=== PATIENT | male | born 1970 | race Caucasian/White ===

== ENCOUNTER 2018-02-15 05:58 | Emergency (ER) | payer BC ==
[~2018-02-15] VITALS: Ht 177.8 cm; Wt 86.2 kg
--- NOTE | 2018-02-15 06:08 | NUR ---
ED Nurse Note: Pt walked into ER stating that he has chest pain that started at 4AM that radiate to L arm and jaw. pt appears asymptomatic. pt states the pain is consistent, during rest and during ADLs. additionally, the pt denies nausea and vomiting. pt states that he has felt these symptomes 2 weeks ago. pulse and sensations felt on all extremites. HR is 60 during initial note, synus rhythm, BP is 141/ 101
[2018-02-15 06:16] VITALS: BP 132/87
--- NOTE | 2018-02-15 06:26 | Emergency Room Report ---
History of Present Illness General Chief Complaint: Chest Pain Source: Patient (Tunde Hays MD) Present Illness HPI Is a 47-year-old male with a history of hyperlipidemia who presents with chief complaint of chest pain. Onset was about 2 hours prior to arrival. Pain woke up from sleep. He said around 3 AM he was very hot said he was sweaty. 4 AM he developed epigastric substernal chest pain. He couldn't fall back to sleep because of the pain. He was concerned because he's started having some pressure in his right jaw and left arm. No exertional component. No nausea no vomiting. No diaphoresis. No shortness of breath. He had left-sided chest pain 2 weeks ago that felt like an achy muscle. He didn't think anything of it. He did get an EKG and chest x-ray that were normal. Denies any other complaint. Has not take anything for this. Does have an extensive family history of MIs. (Tunde Hays MD) Allergies: Coded Allergies: No Known Allergies (Unverified , 02/15/18) Patient History Past Medical History: see triage record, old chart reviewed Past Surgical History: none Pertinent Family History: [place], other - CAD Social History: Denies: smoking Immunizations: other Reviewed Nursing Documentation: PMH: Agreed; PSxH: Agreed (Tunde Hays MD) Review of Systems Eye: Denies: eye pain, blurred vision ENT: Denies: ear pain, nose congestion, throat swelling Respiratory: Denies: cough, shortness of breath Cardiovascular: Reports: chest pain; Denies: palpitations Gastrointestinal: Denies: abdominal pain, diarrhea, nausea, vomiting Musculoskeletal: Denies: back pain, joint pain Skin: Denies: rash Neurological: Denies: headache, numbness Endocrine: Denies: increased thirst, increased urine Hematologic/Lymphatic: Denies: easy bruising All Other Systems: negative except mentioned in HPI (Tunde Hays MD) Physical Exam Vital Signs Date Time Temp Pulse Resp B/P (MAP) Pulse Ox O2 Delivery O2 Flow Rate FiO2 02/15/18 06:08 97.9 56 18 132/87 99 Room Air 02/15/18 06:16 99 vitals normal Sp02 EP Interpretation: reviewed, normal General Appearance: well appearing, no apparent distress, alert Head: normocephalic, atraumatic Eyes: bilateral eye PERRL, bilateral eye EOMI ENT: hearing grossly normal, normal pharynx Neck: full range of motion, supple, no meningismus Respiratory: chest non-tender, lungs clear, normal breath sounds Cardiovascular #1: regular rate, rhythm, no murmur Gastrointestinal: normal bowel sounds, non tender, no mass, no organomegaly, no bruit, non-distended Musculoskeletal: back normal, gait/station normal, normal range of motion Psychiatric: mood/affect normal Skin: warm/dry (Tunde Hays MD) Procedures Critical Care Time Critical Care Time i. I feel this is a highly complex case requiring extensive working including EKG/Rhythm strip, Xray/CT/US, Blood/urine lab work, repeat exams while in ED, and administration of strong opiates/narcotics for pain control, admission to hospital or close patient follow up. Total time: 45 min bedside evaluation and treatment excludes procedures (EKG). Reason for critical care: STEMI Possible complications: hypotension, hypertension, [place], shock, arrhythmias, metabolic acidosis, end organ damage, respiratory failure. Interventions: labs, EKG, CXR, aspirin, Nitro, interpretation of EKG and labs, discussion with STEMI team at [facility], heparin drip/bolus Course: Patient presenting with chest pain. Started this morning. History of high cholesterol. Given aspirin and nitroglycerin here with chest pain improved. EKG shows concerns for ST elevations in lateral leads, with reciproal changes. Troponin greater than 7. Coags ordered. Discussed with PMD Dr James at [facility]. Heparin drip and bolus started. Discussed case with STEMI team at [facility] and they accepted patient Consultations: nursing staff, EMS, family Performed by: Dr Kingsley Tolerated well condition = critical j. because of unstable vital signs this patient had a condition that could potentially threaten life or limb. I feel this is a critical patient who required my full attention while patient was considered critical. Total Critical Care Time excluding procedures was greater than 35 minutes (Pranay Kingsley MD) Medical Decision Making Diagnostic Impression: Primary Impression: Chest pain Qualified Codes: R07.9 - Chest pain, unspecified Additional Impression: STEMI (ST elevation myocardial infarction) Qualified Codes: I21.3 - ST elevation (STEMI) myocardial infarction of unspecified site ER Course Patient with chest pain with some concerning symptoms. Initial EKG w/o evidence of STEMI. He does have repolarization and diffuse ST elevation on EKG. Labs, chest x-ray done. Symptoms concerning for ACS. I will sign this patient out to Dr. Kingsley for for final disposition. (Tunde Hays MD) ER Course Hospital Course 47 yo M presents with chest pain since this morning Patient initially seen and evaluated by Dr Hays; please see his note for full history and physical Clinical course labs reviewed- no leukocytosis, electrolytes ok, trop >7 EKG- ST elevations in lateral leads, reciprocal changes noted on repeat EKG Chest x-ray- no acute process Discussed with patient. He put me in touch with PMD Dr. James at [facility]. agrees the patient will require transfer heparin drip/bolus started. Discussed case with STEMI at [facility]. Agreed that patient is likely having a acute coronary event and will require immediate intervention. 911 called to take patient to [facility] I. I feel this is a highly complex case requiring extensive working including EKG/Rhythm strip, Xray/CT/US, Blood/urine lab work, repeat exams while in ED, and administration of strong opiates/narcotics for pain control, admission to hospital or close patient follow up. Diagnosis - chest pain, STEMI Transferred [facility] in critical condition Labs Test 02/15/18 06:20 White Blood Count 6.0 K/UL (4.8-10.8) Red Blood Count 4.47 M/UL (4.70-6.10) Hemoglobin 14.1 G/DL (14.2-18.0) Hematocrit 40.5 % (42.0-52.0) Mean Corpuscular Volume 91 FL (80-99) Mean Corpuscular Hemoglobin 31.6 PG (27.0-31.0) Mean Corpuscular Hemoglobin Concent 34.8 G/DL (32.0-36.0) Red Cell Distribution Width 10.8 % (11.6-14.8) Platelet Count 193 K/UL (150-450) Mean Platelet Volume 8.6 FL (6.5-10.1) Neutrophils (%) (Auto) 62.7 % (45.0-75.0) Lymphocytes (%) (Auto) 20.8 % (20.0-45.0) Monocytes (%) (Auto) 12.8 % (1.0-10.0) Eosinophils (%) (Auto) 2.8 % (0.0-3.0) Basophils (%) (Auto) 0.9 % (0.0-2.0) Prothrombin Time 10.4 SEC (9.30-11.50) Prothromb Time International Ratio 1.0 (0.9-1.1) Activated Partial Thromboplast Time 30 SEC (23-33) Sodium Level 141 MMOL/L (136-145) Potassium Level 3.7 MMOL/L (3.5-5.1) Chloride Level 104 MMOL/L (98-107) Carbon Dioxide Level 26 MMOL/L (21-32) Anion Gap 12 mmol/L (5-15) Blood Urea Nitrogen 15 mg/dL (7-18) Creatinine 0.9 MG/DL (0.55-1.30) Estimat Glomerular Filtration Rate > 60 mL/min (>60) Glucose Level 112 MG/DL (74-106) Calcium Level 9.2 MG/DL (8.5-10.1) Total Bilirubin 0.8 MG/DL (0.2-1.0) Aspartate Amino Transf (AST/SGOT) 53 U/L (15-37) Alanine Aminotransferase (ALT/SGPT) 68 U/L (12-78) Alkaline Phosphatase 91 U/L (46-116) Total Creatine Kinase 367 U/L (26-308) Creatine Kinase MB 27.3 NG/ML (0.0-3.6) Creatine Kinase MB Relative Index 7.4 Troponin I 7.799 ng/mL (0.000-0.056) Total Protein 7.7 G/DL (6.4-8.2) Albumin 3.9 G/DL (3.4-5.0) Globulin 3.8 g/dL Albumin/Globulin Ratio 1.0 (1.0-2.7) (Pranay Kingsley MD) EKG Diagnostic Results Rate: normal Rhythm: NSR ST Segments: other - Diffuse ST elevation ASA given to the pt in ED: Yes (Tunde Hays MD) Rate: normal Rhythm: NSR ST Segments: other - ST elevations in lateral leads ASA given to the pt in ED: Yes (Pranay Kingsley MD) Rhythm Strip Diag. Results Rhythm Strip Time: 06:26 EP Interpretation: yes Rate: 61 Rhythm: NSR, no PVC's, no ectopy (Tunde Hays MD) EP Interpretation: yes Rhythm: NSR, no PVC's, no ectopy (Pranay Kingsley MD) Chest X-Ray Diagnostic Results Chest X-Ray Diagnostic Results : Chest X-Ray Ordered: Yes # of Views/Limited/Complete: 1 View Indication: Chest Pain EP Interpretation: Yes Interpretation: no consolidation, no effusion, no pneumothorax, no acute cardiopulmonary disease Impression: No acute disease Electronically Signed by: Electronically signed by Pranay Kingsley MD (Pranay Kingsley MD) Last Vital Signs Date Time Temp Pulse Resp B/P (MAP) Pulse Ox O2 Delivery O2 Flow Rate FiO2 02/15/18 06:16 97.9 60 18 132/87 99 Room Air 02/15/18 06:16 99 Status: improved (Tunde Hays MD) Status: improved (Pranay Kingsley MD) Disposition: XFER S[facility]-TRM HOSP Condition: Critical Tunde Hays MD Feb 15, 2018 06:26 Pranay Kingsley MD Feb 15, 2018 08:35
[2018-02-15] MEDS ORDERED: Aspirin Baby 81mg ORAL ONE (06:30)
[2018-02-15] MEDS ORDERED: Nitroglycerin Subl 0.4mg tab SL PRN (06:30)
[2018-02-15 06:39] LABS: BASOPHILS % (AUTO) 0.9 % (0.0-2.0); EOSINOPHILS % (AUTO) 2.8 % (0.0-3.0); HEMATOCRIT 40.5 % (42.0-52.0); HEMOGLOBIN 14.1 G/DL (14.2-18.0); LYMPHOCYTES % (AUTO) 20.8 % (20.0-45.0); MEAN CORPUSCULAR VOLUME 91 FL (80-99); MONOCYTES % (AUTO) 12.8 % (1.0-10.0); NEUTROPHILS % (AUTO) 62.7 % (45.0-75.0); PLATELET COUNT 193 K/UL (150-450); RED BLOOD COUNT 4.47 M/UL (4.70-6.10); RED CELL DISTRIBUTION WIDTH 10.8 % (11.6-14.8)
[2018-02-15 06:54] LABS: ANION GAP 12 mmol/L (5-15); BLOOD UREA NITROGEN 15 mg/dL (7-18); CALCIUM 9.2 MG/DL (8.5-10.1); CARBON DIOXIDE 26 MMOL/L (21-32); CHLORIDE 104 MMOL/L (98-107); CREATININE 0.9 MG/DL (0.55-1.30); POTASSIUM 3.7 MMOL/L (3.5-5.1); SODIUM 141 MMOL/L (136-145)
[2018-02-15 07:04] VITALS: BP 124/95
[2018-02-15 07:08] LABS: ALANINE AMINOTRANSFERASE 68 U/L (12-78); ALBUMIN 3.9 G/DL (3.4-5.0); ALKALINE PHOSPHATASE 91 U/L (46-116); ASPARTATE AMINO TRANSFERASE 53 U/L (15-37); BILIRUBIN,TOTAL 0.8 MG/DL (0.2-1.0); CKMB 27.3 NG/ML (0.0-3.6); CREATINE KINASE 367 U/L (26-308)
[2018-02-15] MEDS ORDERED: SIMVASTATIN5 MG ORAL (07:16)
[2018-02-15] MEDS ORDERED: ASPIR 8181 MG ORAL (07:17)
[2018-02-15] MEDS ORDERED: Heparin 5000 units/ml inj IV ONE (08:00)
[2018-02-15] MEDS ORDERED: Heparin 25,000u/D5W 500ml 500 ML IV SCH (08:00)
--- NOTE | 2018-02-15 08:09 | NUR ---
ED Nurse Note: report given to Vasquez BUENROSTRO at [facility]. patient left with [facility] with IV site left hand 18G. Heparin drip stopped as [facility] cannot take patient with drip, Dr. Hackett made aware. Patient transferred out of ED with all of his belongings, a/o x4, no complaints of pain at this time.
--- NOTE | 2018-02-15 08:09 | NUR ---
ED Nurse Note: 60 AT THE FOR TRANSPORTATION TO [facility] ER. PT REMAINED IN STABLE CONDITION. D/C HEPARIN GTT AT THIS TIME, PT WAS GIVEN BOLUS HEPARIN 5000UNITS IVP X1.
[2018-02-15 08:14] VITALS: BP 124/95
--- NOTE | 2018-02-15 10:11 | Diagnostic Imaging Report ---
Indication: Chest pain Technique: One view of the chest Comparison: none Findings: The heart is mildly enlarged. The lungs and pleural spaces are clear. Impression: Mild cardiomegaly. No acute process
== END 2018-02-15 08:47 | disposition short-term general hospital (02) ==
LOC: EMR 06:42
DX: I21.3 ST elevation (STEMI) myocardial infarction of unspecified site (principal); Z82.49 Family history of ischemic heart disease and other diseases of the circulatory system
CPT/HCPCS: 36415; 71045; 80053; 82550; 82553; 84484; 85025; 85610; 85730; 93005; 96374; 99291; J1644